=== PATIENT | male | born 1955 | race Caucasian/White ===

== ENCOUNTER 2024-04-18 11:17 | Inpatient (IN) | payer MEDICARE ==
[~2024-04-18] VITALS: Ht 185.4 cm; Wt 87.1 kg
[2024-04-18] MEDS ORDERED: NS 1,000 ML IV SCH (11:45)
[2024-04-18 11:51] LABS: Source, Urine Foley catheter
[2024-04-18 11:52] LABS: Calcium, Ionized (POC) 1.08 mmol/L (1.10-1.46); Chloride (POC) 102 mmol/L (98-108); Creatinine (POC) 6.1 mg/dL (0.8-1.3); Glucose (ISTAT POC) 116 mg/dL (70-99); Hemoglobin (POC) 10.2 g/dL (13.5-17.5); Potassium (POC) 6.2 mmol/L (3.5-5.5); Sodium (POC) 131 mmol/L (135-148); Total CO2 (POC) 23 mmol/L (21-32)
[2024-04-18 11:53] LABS: BASOPHILS ABSOLUTE AUTO 0.02 K/mm3 (0.00-0.23); BASOPHILS PERCENT AUTO 0 % (0-2); EOSINOPHILS PERCENT AUTO 0 % (0-6); Hematocrit 30.1 % (37.0-53.0); Hemoglobin 9.7 g/dL (13.5-17.5); IMMATURE GRAN ABSOLUTE AUTO 0.09 K/mm3 (0.00-0.10); IMMATURE GRAN PERCENT AUTO 1 % (0-1); LYMPHOCYTES ABSOLUTE AUTO 0.29 K/mm3 (0.84-5.20); LYMPHOCYTES PERCENT AUTO 3 % (21-46); MONOCYTES ABSOLUTE AUTO 0.38 K/mm3 (0.16-1.47); MONOCYTES PERCENT AUTO 4 % (4-13); Mean Corpuscular HGB 25.6 pg (26.0-34.0); Mean Corpuscular HGB Conc 32.2 g/dL (31.5-36.5); Mean Corpuscular Volume 79 fL (80-100); Mean Platelet Volume 10.1 fL (9.1-12.4); NEUTROPHILS ABSOLUTE AUTO 7.86 K/mm3 (1.96-9.15); NEUTROPHILS PERCENT AUTO 91 % (41-73); Platelet Count 342 K/mm3 (150-400); RDW Coefficient Variation 16.9 % (11.7-14.2); RDW Standard Deviation 48.6 fL (35.1-46.3); Red Blood Cell Count 3.79 M/mm3 (4.30-5.90); White Blood Cell Count 8.64 K/mm3 (4.00-11.30)
[2024-04-18 12:02] LABS: Appearance, Urine Hazy (Clear); Bilirubin, Urine Neg (Neg); Blood, Urine 4+ (Neg); Color, Urine Yellow (P-Yellow); Glucose Qualitative, Urine Neg (Neg); Ketones, Urine Neg (Neg); Leukocyte Esterase, Urine 2+ (Neg); Nitrite, Urine Neg (Neg); Protein, Urine 2+ (Neg); Specific Gravity, Urine 1.015 (1.003-1.022); Urobilinogen, Urine NORM (Normal)
[2024-04-18] MEDS ORDERED: Insulin Regular 100 Unit/ML 1ML Dose IV ONE (12:05)
[2024-04-18] MEDS ORDERED: Sodium Bicarb 8.4% 1 MEQ/ML 50 ML Vial IV ONE (12:05)
[2024-04-18] MEDS ORDERED: Calcium Gluconate 10% 100 MG/ML INJ IV ONE (12:05)
[2024-04-18] MEDS ORDERED: Albuterol 2.5 MG/3 ML VIAL INH SCH (12:05)
[2024-04-18] MEDS ORDERED: Piperacillin/Tazobactam Sod 3.375 GM in NS 100 ML IV ONE (12:10)
[2024-04-18] MEDS ORDERED: CALCIUM GLUC IN NACL, ISO-OSM 50 ML IV ONE (12:10)
[2024-04-18 12:20] LABS: CORONAVIRUS COVID-19 AG Negative (NEGATIVE); INFLUENZA A AG Negative (NEGATIVE); INFLUENZA B AG Negative (NEGATIVE)
[2024-04-18] MEDS ORDERED: Dextrose 50% 50 ML Syringe IV ONE (12:20)
[2024-04-18] MEDS ORDERED: Dextrose 50% 50 ML Vial IV ONE (12:25)
[2024-04-18 12:26] LABS: Albumin, Blood 1.6 g/dL (3.4-5.0); Albumin/Globulin Ratio 0.3 (0.8-1.8); Bilirubin, Total 0.7 mg/dL (0.1-1.0); Bun/Creatinine Ratio 22.9 (12.0-20.0); Calcium, Blood 9.8 mg/dL (8.5-10.1); Creatinine, Blood 4.8 mg/dL (0.60-1.20); Globulin, Blood 5.8 g/dL (2.2-4.0); Potassium, Blood 6.2 mmol/L (3.5-5.5); Total Protein, Blood 7.4 g/dL (6.4-8.2)
[2024-04-18 12:39] LABS: Bacteria Mod /hpf; Squamous Epithelial Cells Not Seen /hpf (Few); White Blood Cells, Urine 50-100 /hpf (0-5)
[2024-04-18 13:13] LABS: Calcium, Ionized (POC) 2.02 mmol/L (1.10-1.46); Chloride (POC) 104 mmol/L (98-108); Creatinine (POC) 5.3 mg/dL (0.8-1.3); Glucose (ISTAT POC) 170 mg/dL (70-99); Hemoglobin (POC) 8.2 g/dL (13.5-17.5); Potassium (POC) 3.9 mmol/L (3.5-5.5); Sodium (POC) 134 mmol/L (135-148); Total CO2 (POC) 21 mmol/L (21-32)
[2024-04-18 13:20] LABS: PCO2 Arterial 40.2 mmHg (35-45); PO2 Arterial 218 mmHg (80-100); pH Blood Arterial 7.31 (7.35-7.45)
[2024-04-18] MEDS ORDERED: HYDROmorphone HCl/Pf 1MG SYR IV ONE (13:50)
[2024-04-18 15:12] LABS: Anti-Xa UFH, PHA Monitoring <0.10 IU/mL; International Normalized Ratio 1.13
[2024-04-18] MEDS ORDERED: FLU VACC TS2024-25(6MOS UP)/PF 45 MCG/0.5 ML SYRINGE IM ONE (15:20)
[2024-04-18] MEDS ORDERED: Vancomycin HCL 1,250 MG in NS 250 ML IV ONE (15:25)
[2024-04-18] MEDS ORDERED: Heparin Sodium,Porcine/0.5 NS 500 ML IV SCH (15:25)
[2024-04-18] MEDS ORDERED: HYDROmorphone HCl/Pf 1MG SYR IV PRN (15:30)
[2024-04-18] MEDS ORDERED: Ondansetron HCl 2 MG / ML 2ML Vial IV PRN (15:30)
[2024-04-18] MEDS ORDERED: Docusate Sodium/Senna 1 Tab PO PRN (16:05)
[2024-04-18] MEDS ORDERED: Polyethylene Glycol 3350 17 gm PO PRN (16:05)
[2024-04-18 19:38] LABS: Adenovirus Not Detected (NOT DETECT); Bordetella pertussis Not Detected (NOT DETECT); Chlamydophila pneumoniae Not Detected (NOT DETECT); Coronavirus 229E Not Detected (NOT DETECT); Coronavirus HKU1 Not Detected (NOT DETECT); Coronavirus NL63 Not Detected (NOT DETECT); Coronavirus OC43 Not Detected (NOT DETECT); Human Metapneumovirus Not Detected (NOT DETECT); Human Rhinovirus/Enterovirus Not Detected (NOT DETECT); Influenza A/2009-H1 Not Detected (NOT DETECT); Influenza A/H1 Not Detected (NOT DETECT); Influenza A/H3 Not Detected (NOT DETECT); Influenza B Not Detected (NOT DETECT); Mycoplasma pneumoniae Not Detected (NOT DETECT); Parainfluenza Virus 1 Not Detected (NOT DETECT); Parainfluenza Virus 2 Not Detected (NOT DETECT); Parainfluenza Virus 3 Not Detected (NOT DETECT); Parainfluenza Virus 4 Not Detected (NOT DETECT); Respiratory Syncytial Virus Not Detected (NOT DETECT); SARS-Cov-2 (COVID-19), BioFire Not Detected (NOT DETECT)
[2024-04-18] MEDS ORDERED: Cefepime HCl 1,000 MG in NS 100 ML IV SCH (21:00)
[2024-04-18 22:08] LABS: Anti-Xa UFH, PHA Monitoring 0.12 IU/mL
[2024-04-18] MEDS ORDERED: Dose Adjust by Pharmacy XX STA (23:11)
[2024-04-18] MEDS ORDERED: Heparin Sodium 5000 Units/ML 1ML MDV IV ONE (23:15)
[2024-04-19 05:42] LABS: Hematocrit 25.2 % (37.0-53.0); Hemoglobin 7.9 g/dL (13.5-17.5); Mean Corpuscular HGB 25.2 pg (26.0-34.0); Mean Corpuscular HGB Conc 31.3 g/dL (31.5-36.5); Mean Corpuscular Volume 80 fL (80-100); Mean Platelet Volume 9.7 fL (9.1-12.4); Platelet Count 264 K/mm3 (150-400); RDW Standard Deviation 49.1 fL (35.1-46.3); Red Blood Cell Count 3.14 M/mm3 (4.30-5.90); White Blood Cell Count 8.85 K/mm3 (4.00-11.30)
[2024-04-19 06:05] LABS: BAND PERCENT MAN 9 % (0-8); BASOPHILS PERCENT MAN 0 % (0-2); EOSINOPHILS PERCENT MAN 0 % (0-6); LYMPHOCYTES ABSOLUTE MAN 0.17 K/mm3 (0.84-5.20); LYMPHOCYTES PERCENT MAN 2 % (21-46); MONOCYTES ABSOLUTE MAN 0.61 K/mm3 (0.16-1.47); MONOCYTES PERCENT MAN 7 % (4-13); MYELOCYTE ABSOLUTE MAN 0.08 K/mm3 (0.00-0.00); MYELOCYTE PERCENT MAN 1 % (0-0); NEUTROPHILS ABSOLUTE MAN 7.96 K/mm3 (1.96-9.15); SEG NEUTROPHILS PERCENT MAN 81 % (41-73); TOTAL CELLS COUNTED 100
[2024-04-19 06:17] LABS: Alanine Aminotransfer (ALT/SGP 12 U/L (12-78); Albumin, Blood 1.4 g/dL (3.4-5.0); Albumin/Globulin Ratio 0.3 (0.8-1.8); Alk Phos 108 U/L (50-136); Anion Gap 15 mmol/L (3-11); Aspartate Aminotrans (AST/SGOT 37 U/L (12-37); Bilirubin, Total 0.7 mg/dL (0.1-1.0); Blood Urea Nitrogen 108 mg/dL (8-24); Bun/Creatinine Ratio 25.7 (12.0-20.0); CO2, Blood 22 mmol/L (21-32); Calcium, Blood 8.9 mg/dL (8.5-10.1); Chloride, Blood 105 mmol/L (98-108); Globulin, Blood 4.7 g/dL (2.2-4.0); Glomerular Filtration Rate 14 (60-); Glucose, Blood 118 mg/dL (70-99); Potassium, Blood 4.9 mmol/L (3.5-5.5); Sodium, Blood 137 mmol/L (136-145); Total Protein, Blood 6.1 g/dL (6.4-8.2); Vancomycin, Random 18.2 ug/mL
[2024-04-19] MEDS ORDERED: Vancomycin HCL 1,000 MG in NS 250 ML IV ONE (08:30)
[2024-04-19 08:32] LABS: Acinetobacter baumannii DNA Not Detected copy/mL (NOT DETECT); Enterobacter cloacae DNA Not Detected copy/mL (NOT DETECT); Escherichia coli DNA Not Detected copy/mL (NOT DETECT); Haemophilus influenzae DNA Not Detected copy/mL (NOT DETECT); Klebsiella aerogenes DNA Not Detected copy/mL (NOT DETECT); Klebsiella oxytoca DNA Not Detected copy/mL (NOT DETECT); Klebsiella pneumoniae DNA Not Detected copy/mL (NOT DETECT); Moraxella catarrhalis DNA Not Detected copy/mL (NOT DETECT); Proteus sp DNA Not Detected copy/mL (NOT DETECT); Pseudomonas aeruginosa DNA Not Detected copy/mL (NOT DETECT); Serratia marcescens DNA Not Detected copy/mL (NOT DETECT); Staphylococcus aureus DNA Not Detected copy/mL (NOT DETECT); Streptococcus agalactiae DNA Not Detected copy/mL (NOT DETECT); Streptococcus pneumoniae DNA Not Detected copy/mL (NOT DETECT); Streptococcus pyogenes DNA Not Detected copy/mL (NOT DETECT)
[2024-04-19 08:33] LABS: Adenovirus DNA Not Detected (NOT DETECT); Chlamydia pneumonia Not Detected (NOT DETECT); Human Coronavirus RNA Not Detected (NOT DETECT); Human Metapneumovirus RNA Not Detected (NOT DETECT); Influenza virus A RNA Not Detected (NOT DETECT); Influenza virus B RNA Not Detected (NOT DETECT); Legionella pneumophila Not Detected (NOT DETECT); Mycoplasma pneumoniae Not Detected (NOT DETECT); Parainfluenza virus RNA Not Detected (NOT DETECT); Respiratory syncytial Vir RNA Not Detected (NOT DETECT); Rhinovirus+Enterovirus RNA Not Detected (NOT DETECT)
[2024-04-19] MEDS ORDERED: Tamsulosin HCl 0.4 MG Cap PO SCH (09:00)
[2024-04-19] MEDS ORDERED: Protein Supplement 30 ML UD PO SCH (09:00)
[2024-04-19 10:45] VITALS: BP 101/62
[2024-04-19] MEDS ORDERED: OXYCODONE-ACET1 EAC2 PO (11:14)
[2024-04-19] MEDS ORDERED: ONDA4ODT MM (11:14)
[2024-04-19] MEDS ORDERED: ELIQUIS5 M3 PO (11:15)
[2024-04-19] MEDS ORDERED: LINZESS290 MCG PO (11:15)
--- NOTE | 2024-04-19 11:30 | NUR ---
ARRIVAL TO PCU: Patient arrived to PCU 13 via gurney and was slid to the bed. He is resting with eyes closed, easily wakes with verbal stimuli. He is able to tell me his name, the month, and that he thinks we are at a facility located in [place]. He denies pain at rest but winces with any repositioning. HRR, he is in SR with a BBB in the 90s to low 100s. Fingers/hands dusky and difficult to get a good pulse ox reading. Biox is 100% with the oxy mask turned all the way up, RT at the bedside to put patient on a high flow NC, he is high 90s on 6L via NC. BT+. He has a [address] temp perea in place draining tawny colored couldy urine. PPP, his his feet are dusky also, pulses thready. 2+ edema to BLE. 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 He has one moderate sized ulceration on the right upper back, jiménez moist wound bed. He has a mepilex to the coccyx, he has a black necrotic pressure ulcer, md notified and assessed. Will put in wound care orders. VSS. Patient repositioned for comfort. Call light in reach. Call placed to palliative care to come and see the patient to talk with family about goals of care.
[2024-04-19] MEDS ORDERED: NS 1,000 ML IV SCH (13:05)
[2024-04-19] MEDS ORDERED: Heparin Sodium 5000 Units/ML 1ML MDV IV ONE ×2 (13:10→21:40)
[2024-04-19 16:18] VITALS: BP 93/54
--- NOTE | 2024-04-19 16:21 | NUR ---
PRIMARY RN REPORTS PT IS ABLE TO VERBALIZE ON OCCATION. PT LYING SUPINE WITH EYES CLOSED THE BARROW WORKER WAS FINISHING THE EXAM. BARROW WORKER REPORTED PT WAS NOT COMMUNICATIVE AND ONLY GROANED WITH REPOSITIONING. PT OPENED HIS EYES WHEN THIS PC RN CALLED HIS NAME. HE WAS ABLE TO WHISPER AND MOUTH ASKING FOR WATER. ORAL CARE PROVIDED PT IS NPO AT THIS TIME. PT WAS ABLE TO STATE HIS NAME. HE DOES NOT KNOW WHERE HE IS OR WHY. ANASARCA NOTED. GENERALIZED PALLOR. MCKEON/ASHEN COLOR NOTED TO BILAT HANDS AND FOREARMS. PPP X4. WEAK PEDAL PULSES. PRODUCTIVE WET COUGH WITH THICK WHITE MUCUS. HE IS NOT ABLE TO SPIT OR CLEAR MUCUS FROM HIS MOUTH. WHEN HANDING PT THE YANKAUER TO SUCTION, HE HAD DIFFICULTY LIFTING HIS HANDS OFF THE BED (HEAVY APPEARANCE). SLIGHT, STIFF MOVEMENTS. MULTIPULE ATTEMPTS TO REACH PT'S BROTHERFRACISCO BY THIS PC RN AND BEDSIDE RN. PT'S PHONE WAS AT BEDSIDE WITH HIS GLASSES IN A PLASTIC BAG. AFTER SOME TIME, PT WAS ABLE TO TELL THIS PC RN HIS PIN NUMBER TO HIS CELL PHONE. THIS PC RN CHARGED PT'S PHONE (WAS AT 4%) THEN UNLOCKED IT TO RETRIEVE CONTACT INFORMATION FOR HIS CHILDREN. HE HAS A SON, DIEGO AND A DAUGHTER, TEJAS. BOTH LIVE OUT OF STATE. MESSAGES LEFT FOR BOTH CHILDREN. SPOKE WITH ANOTHER BROTHER, CHAD BY PHONE. 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 PT HAS BEEN STRUGGLING WITH CHRONIC CONSTIPATION, SOMETIMES 2-3 WEEKS BETWEEN BOWEL MOVEMENTS. RANCHO RELOCATED TO [place] [facility] FROM [place] IN JULY 2023 TO BE CLOSER TO HIS MOTHER. PRIOR TO RELOCATION, HE HAD UNDERGONE CHEMO, RADIATION AND "ANOTHER INFUSION OF SOME KIND EVERY 3-4 MONTHS." "MY BROTHER FRACISCO HAS BEEN TRYING TO HELP GET RANCHO UP OFF THE COUCH. HE HASN'T BEEN ABLE TO GET HIMSELF UP FOR A WEEK OR MORE. HE CAN'T HARDLY MOVE. RANCHO FELL OFF THE COUCH. THEY HAD TO CALL FOR HELP TO PICK HIM UP." SPOKE WITH SON, DIEGO THIS EVENING WHEN HE RETURNED THIS PC RN'S PHONE CALL. PT'S CURRENT STATUS REVIEWED. DEIGO WAS NOT EXPECTING TO HEAR HIS FATHER HAS HAD SUCH A STEEP DECLINE IN THE LAST MONTH. HE CONCLUDES PT WOULD WANT TO BE A DNR/DNI AT THIS TIME. PLAN: DIEGO TO REACH OUT TO PT'S DTR TEJAS THIS EVENING AND SET UP A CONFERENCE CALL WITH THE BOTH OF THEM TOMORROW 04/20/24 AROUND 1100. THIS PC RN TO NOTIFY PROVIDER IN THE MORNING. BEDSIDE RN UPDATED. CAT
[2024-04-19 16:29] VITALS: BP 95/61
[2024-04-19 17:08] LABS: Albumin, Blood 1.3 g/dL (3.4-5.0); Anion Gap 18 mmol/L (3-11); Blood Urea Nitrogen 123 mg/dL (8-24); Bun/Creatinine Ratio 31.1 (12.0-20.0); CO2, Blood 22 mmol/L (21-32); Calcium, Blood 8.6 mg/dL (8.5-10.1); Chloride, Blood 104 mmol/L (98-108); Creatinine, Blood 3.95 mg/dL (0.60-1.20); Glomerular Filtration Rate 16 (60-); Glucose, Blood 100 mg/dL (70-99); Phosphorus, Blood 5.6 mg/dL (2.5-4.9); Potassium, Blood 4.5 mmol/L (3.5-5.5); Sodium, Blood 139 mmol/L (136-145)
--- NOTE | 2024-04-19 17:36 | NUR ---
Provider consult was phoned into surgery (Dr. Chen) this evening. No new orders, MD would like Pt to be NPO at midnight but Pt is already strict NPO due to swallowing issues.
--- NOTE | 2024-04-19 17:59 | NUR ---
End of shift note. Pt is A&O1-2, very slow to respond. BP on the soft side but MAP >65. HR in low 100. Pt is tolerating being on a NC at 2L. Pt has been NPO, due to poor swallowing. ST eval was placed. Surgery consult was called in and someone will see him tomorrow. Pt repositioned regularly. Pt is able to make needs known, call light is within reach.
--- NOTE | 2024-04-19 18:51 | NUR ---
SUMMARY: Patient arrived from the ER to PCU 13, he was somulent upon arrival but became more alert and conversant at the day went on. He is oriented to self, month, and family only. HRR, SR-ST in the 90s to low 100s.LS DIM with some coarse crackles in the right middle and upper lobes. BT+, he was digitally disimpacted in the emergency room and had a large BM. He has a 3 way perea in with temp probe, draining tawny cloudy urine. Dr. Bliss came to see the patient this shift, orders for IVF. He has and ulcer to his right upper back and a necrotic wound to his coccyx, metahoney and mepilex dressings in place. Palliative care came to see the patient and was able to talk with the patients son who will contact the daughter to have a goals of care converstaion tomrrow at 11 am. No other changes this shift. Will report to oncoming RN.
[2024-04-19 21:09] VITALS: BP 124/59
[2024-04-19 21:30] LABS: Anti-Xa UFH, PHA Monitoring 0.1 IU/mL
[2024-04-19] MEDS ORDERED: Dose Adjust by Pharmacy XX STA (21:37)
[2024-04-20 00:06] VITALS: BP 112/69
[2024-04-20 03:57] VITALS: BP 113/55
[2024-04-20 04:49] LABS: Hematocrit 23.4 % (37.0-53.0); Hemoglobin 7.2 g/dL (13.5-17.5); Mean Corpuscular HGB 24.9 pg (26.0-34.0); Mean Corpuscular HGB Conc 30.8 g/dL (31.5-36.5); Mean Corpuscular Volume 81 fL (80-100); Mean Platelet Volume 9.4 fL (9.1-12.4); Platelet Count 274 K/mm3 (150-400); RDW Coefficient Variation 17.5 % (11.7-14.2); RDW Standard Deviation 51.9 fL (35.1-46.3); Red Blood Cell Count 2.89 M/mm3 (4.30-5.90); White Blood Cell Count 11.59 K/mm3 (4.00-11.30)
[2024-04-20 05:17] LABS: Alanine Aminotransfer (ALT/SGP 13 U/L (12-78); Albumin, Blood 1.3 g/dL (3.4-5.0); Albumin/Globulin Ratio 0.3 (0.8-1.8); Alk Phos 97 U/L (50-136); Anion Gap 16 mmol/L (3-11); Aspartate Aminotrans (AST/SGOT 35 U/L (12-37); Bilirubin, Total 0.6 mg/dL (0.1-1.0); Blood Urea Nitrogen 110 mg/dL (8-24); Bun/Creatinine Ratio 32.4 (12.0-20.0); CO2, Blood 18 mmol/L (21-32); Calcium, Blood 8.5 mg/dL (8.5-10.1); Chloride, Blood 113 mmol/L (98-108); Globulin, Blood 4.6 g/dL (2.2-4.0); Glomerular Filtration Rate 19 (60-); Glucose, Blood 85 mg/dL (70-99); Potassium, Blood 4.3 mmol/L (3.5-5.5); Sodium, Blood 143 mmol/L (136-145); Total Protein, Blood 5.9 g/dL (6.4-8.2); Vancomycin, Random 24.6 ug/mL
[2024-04-20] MEDS ORDERED: Dose Adjust by Pharmacy XX STA (05:21)
[2024-04-20] MEDS ORDERED: Heparin Sodium 5000 Units/ML 1ML MDV IV ONE (05:25)
[2024-04-20 05:34] LABS: BAND PERCENT MAN 19 % (0-8); BASOPHILS PERCENT MAN 0 % (0-2); EOSINOPHILS PERCENT MAN 0 % (0-6); LYMPHOCYTES ABSOLUTE MAN 0.11 K/mm3 (0.84-5.20); LYMPHOCYTES PERCENT MAN 1 % (21-46); METAMYELOCYTE ABSOLUTE MAN 0.23 K/mm3 (0.00-0.00); METAMYELOCYTE PERCENT MAN 2 % (0-0); MONOCYTES ABSOLUTE MAN 0.46 K/mm3 (0.16-1.47); MONOCYTES PERCENT MAN 4 % (4-13); NEUTROPHILS ABSOLUTE MAN 10.77 K/mm3 (1.96-9.15); SEG NEUTROPHILS PERCENT MAN 74 % (41-73); TOTAL CELLS COUNTED 100
--- NOTE | 2024-04-20 06:49 | NUR ---
SHIFT SUMMARY ASSUMED CARE OF PT AT APPROX 1900. PT LETHARGIC AND ORIENTED TO SELF. PT REPORTS BEING TOO WEAK TO TURN; Q2H TURNS INITIATED, Q4H ORAL CARE COMPLETED. PT ON HEPARIN GTT AT SHIFT CHANGE AT 22U/KG/HR OR 33.4mL, (CORRECTED WITH PHARMACY) AND END OF SHIFT PT NOW AT 28U/KG/HR OR 42.6mL/HR. PT DENIES SOB, CP/PRESSURE. PT BED IN LOWEST POSITION AND CALL LIGHT WITHIN REACH.
[2024-04-20 08:14] VITALS: BP 128/68
[2024-04-20] MEDS ORDERED: D5W-1/2NS 1,000 ML IV SCH (11:45)
[2024-04-20] MEDS ORDERED: LORazepam 1 MG Tab PO PRN (12:35)
[2024-04-20] MEDS ORDERED: Atropine Sulfate 1% Opth Soln 2ML BTL SL PRN (12:35)
[2024-04-20] MEDS ORDERED: Morphine Sulfate 20 MG/1ML 1 ML Oral Syringe SL PRN (12:35)
[2024-04-20] MEDS ORDERED: Scopolamine Hydrobromide Patch TOP PRN (12:35)
[2024-04-20] MEDS ORDERED: Promethazine HCl 25 MG Supp PR PRN (12:35)
[2024-04-20] MEDS ORDERED: Haloperidol Lactate 2 MG/ML Conc 1ML Dose PO PRN (12:35)
[2024-04-20] MEDS ORDERED: Acetaminophen 650 MG Supp PR PRN (12:35)
[2024-04-20] MEDS ORDERED: Sod Phosphate/Sod Biphosphate 132 ML BTL PR PRN (12:45)
[2024-04-20] MEDS ORDERED: Bisacodyl 10 MG Supp PR PRN (12:45)
--- NOTE | 2024-04-20 15:23 | NUR ---
Spiritual care visit conducted. Patient is lying in bed and resting. He wakes up to the sound of his name but only speaks a couple of words during our visit. He shakes his head affirmingly that he is having a rough season and can not express why. He welcomes prayer, which I gladly supply. He states that the prayer was "good." He immediately falls back to sleep once he says, "good." I will continue to remain available.
--- NOTE | 2024-04-20 16:08 | NUR ---
STATUS CHANGE TO COMFORT CARE GOALS OF CARE CONFERENCE CALL WITH DR. MCCULLOUGH, THIS PC RN, SON DIEGO, DTR TEJAS. PT'S BROTHER PRESENT IN THE ROOM. RANCHO IS ALERT DURING TODAYS MEETING. HE IS ABLE TO COMMUNICATE BY WHISPERING, MOUTHING AND NODDING OF HIS HEAD. RANCHO ACKNOWLEDGED DIEGO AND TEJAS ON THE PHONE AND SMILED AT THE SOUND OF THEIR VOICE. PT DENIES SETTING UP ANY CARES WITH THE LOCAL CANCER CENTER. WHEN ASKED ABOUT TREATING HIS CANCER, HE SHOOK HIS HEAD NO AND MOUTHED NO. PT ASKS FOR WATER MULTIPULE TIMES T/O THIS VISIT. HE IS AWARE OF THE ASPIRATION RISKS. PT AND FAMILY WOULD LIKE PT TO START ON COMFORT CARE SERVICES. VERBAL ORDERS OBAINED FROM DR. MCCULLOUGH TO PLACE COMFORT CARE ORDERS. PC TO REMAIN AVAILABLE NEEDED FOR COMFORT.
--- NOTE | 2024-04-20 16:27 | NUR ---
TRANSFER TO MEDICAL FLOOR NOTE: REPORT CALLED AMPARO JUNE RN FOR REPORT. PTS BELONGINGS COLLECTED AND TAKEN TO ROOM 357 WITH PT VIA HOSPITAL BED.
--- NOTE | 2024-04-20 18:48 | NUR ---
PATIENT RECEIVED TO MEDICAL UNIT AT 1625. HE IS RESTING IN BED, MOUTH OPEN, RESPIRATIONS 16 AND NON LABORED WITH 4LPM HUMIDIFIED OXYGEN.
--- NOTE | 2024-04-20 19:19 | NUR ---
PATIENT RESTING IN BED SINCE ARRIVAL. HE IS AWAKE DURING SHIFT CHANGE REPORT. HE DENIES DISCOMFORT AT THIS TIME AND REQUESTS TO NOT BE TURNED.
--- NOTE | 2024-04-21 05:58 | NUR ---
SHIFT SUMMARY PT A&O TO SELF AND IS CONFUSED AT BASELINE. PT ON COMFORT CARE, RECEIVED PRN MEDICATIONS. PT REPOSITIONED Q2 HRS. PT HEEL SHOWING SOME REDNESS DUE TO KICKING OFF HEEL PROTECTORS BETWEEN REPOSITIONING. NO ACUTE EVENTS AT THIS TIME. PT LEFT IN A POSITION OF SAFETY WITH FALL PRECAUTIONS IN PLACE. CALL LIGHT IN REACH.
--- NOTE | 2024-04-21 19:42 | NUR ---
SHIFT SUMMARY PATIENT RESTING IN BED THROUGH SHIFT. HE WAKES EASILY AND VERBALIZES REQUESTS, HE IS PAINFUL WHEN REPOSITIONED AT ALL AND NEEDS MEDICATION FOR PAIN OFTEN. HE IS ABLE TO STATE HIS NAME AND TO SWALLOW FOOD AT THIS TIME. BED IN LOW POSITION, HE DOES NOT USE CALL LIGHT AND NEEDS FREQUENT ROUNDING AND HAS BEEN TURNED Q2 HOURS. BROTHER AND MOTHER AT BEDSIDE AT LUNCH.
--- NOTE | 2024-04-22 00:54 | NUR ---
PT @0037. RN BY THE BEDSIDE, VERIFIED. ROOM SERVICE CLERK LUCINDA NOTIFIED. MAGNETIC HEALER NOTIFIED. DR. DAWN NOTIFIED OVER THE PHONE. THIS HADOOP INFRASTRUCTURE ARCHITECT LVM TO PT'S BROTHER FRACISCO. UNABLE TO REACH OVER THE PHONE AT THIS TIME.
--- NOTE | 2024-04-22 05:36 | NUR ---
this report writer spoke with pt's brother Denny over the phone. Per family's wishes, pt will be transported to [facility]. Charge nurse Kristie notified. Pt's brother will fruit picker pt's belonings later today.
== END 2024-04-22 00:37 | DRG 871 ==
LOC: ER 11:17 → ERHOLD 11:18 → MEDS 11:18 → PCU 11:18 → MEDS 04-20 16:13
PROVIDERS: Hospitalist; Student in an Organized Health Care Education/Training Program; ADMIT Family Medicine
PROC: 3E03329 Introduction of Other Anti-infective into Peripheral Vein, Percutaneous Approach (ICD-10-PCS; principal; 2024-04-18)
PROC: 5A09457 Assistance with Respiratory Ventilation, 24-96 Consecutive Hours, Continuous Positive Airway Pressure (ICD-10-PCS; 2024-04-18)
PROC: 0T9B70Z Drainage of Bladder with Drainage Device, Via Natural or Artificial Opening (ICD-10-PCS; 2024-04-18)
PROC: 0DCP7ZZ Extirpation of Matter from Rectum, Via Natural or Artificial Opening (ICD-10-PCS; 2024-04-18)
PROC: 4A033R1 Measurement of Arterial Saturation, Peripheral, Percutaneous Approach (ICD-10-PCS; 2024-04-18)
DX: A41.9 Sepsis, unspecified organism (principal); E43 Unspecified severe protein-calorie malnutrition; I26.99 Other pulmonary embolism without acute cor pulmonale; Z66 Do not resuscitate; J18.9 Pneumonia, unspecified organism; J96.01 Acute respiratory failure with hypoxia; G92.8 Other toxic encephalopathy; N39.0 Urinary tract infection, site not specified; N13.30 Unspecified hydronephrosis; C78.7 Secondary malignant neoplasm of liver and intrahepatic bile duct; C96.9 Malignant neoplasm of lymphoid, hematopoietic and related tissue, unspecified; N17.9 Acute kidney failure, unspecified; E87.1 Hypo-osmolality and hyponatremia; Z51.5 Encounter for palliative care; R65.20 Severe sepsis without septic shock; E87.5 Hyperkalemia; R33.8 Other retention of urine; K56.41 Fecal impaction; R62.7 Adult failure to thrive; E83.51 Hypocalcemia; B35.1 Tinea unguium; D63.1 Anemia in chronic kidney disease; Z28.29 Immunization not carried out because of patient decision for other reason; Z68.29 Body mass index [BMI] 29.0-29.9, adult
CPT/HCPCS: 0202U; 0528U; 36415; 36600; 51702; 51798; 71045; 71260; 74177; 80047; 80053; 80069; 80202; 81001; 82550; 82565; 82570; 82803; 82947; 83605; 83735; 83880; 83930; 84100; 84145; 84295; 84300; 84443; 84484; 85014; 85025; 85520; 85610; 85730; 87040; 87070; 87077; 87086; 87186; 87205; 87428-QW; 93005; 93010; 93306; 94644; 94660; 94664; 94760; 94762; 96361; 96365; 96375; 99285-25; A9270; C1751; J0612; J0692; J1171; J1644; J1815; J2543; J3370; J7030; J7050; J7799; Q9967